=== PATIENT | female | born 1980 | race Caucasian/White ===

== ENCOUNTER 2017-11-10 09:51 | Outpatient (CLI) | payer BC ==
[2017-11-10] MEDS ORDERED: ISOVUE-370 76%-LOCM 1 ML ONE (14:10)
== END 2017-11-10 09:52 | disposition home or self-care (01) ==
LOC: BICCT 09:51
PROVIDERS: ATTEND Internal Medicine Hematology & Oncology
DX: C81.14 Nodular sclerosis Hodgkin lymphoma, lymph nodes of axilla and upper limb (principal); D50.8 Other iron deficiency anemias; R91.8 Other nonspecific abnormal finding of lung field
CPT/HCPCS: 71260

== ENCOUNTER 2018-01-21 13:28 | Outpatient (CLI) | payer BC ==
[2018-01-21 14:57] LABS: Hemoglobin 12.9 g/dL (12.0-16.0); Mean Corpuscular HGB CONC 34.6 g/dL (32.0-36.0); Mean Corpuscular Volume 89.6 fL (78.0-98.0); Mean Platelet Volume 6.5 fL (7.4-10.4); Platelet Count 299 thou/uL (130-400); RBC Distribution Width 15.7 % (11.5-14.5); Red Blood Cell (RBC) Count 4.15 mill/uL (4.20-5.40); White Blood Cell (WBC) Count 11.6 thou/uL (4.8-10.8)
[2018-01-21 15:09] LABS: Bilirubin Negative (Negative); Blood, Urine Negative (Negative); Clarity CLEAR (Clear); Glucose, Urine (Dipstick) Negative (Negative); Leukocyte Negative (Negative); Nitrite Negative (Negative); Protein, Urine (Dipstick) Negative (Neg-Trace); Specific Gravity, Urine 1.015 (1.002-1.036); Urobilinogen 0.2 mg/dL (0.2-1.0); pH, Urine 5.5 (5.0-9.0)
[2018-01-21 15:12] LABS: Bacteria/HPF None Seen HPF (None Seen); Hyaline Casts/LPF 0-3 HYALINE CAST LPF (0-3 Hyaline); Squamous Epithelial 0-3 HPF (0-3); WBC/HPF None Seen HPF (0-3)
[2018-01-21 15:19] LABS: BHCG - Serum Negative (NEGATIVE); Pregs Control Background? CLEAR/WHITE (CLR/WHITE); Pregs Control Bar Appear? YES (CONTROL BAR)
== END 2018-01-21 13:29 | disposition home or self-care (01) ==
LOC: LABBT 13:28
PROVIDERS: ATTEND Obstetrics & Gynecology
DX: Z01.812 Encounter for preprocedural laboratory examination (principal); N92.0 Excessive and frequent menstruation with regular cycle
CPT/HCPCS: 81001; 84703; 85027

== ENCOUNTER 2018-01-30 06:14 | Inpatient (IN) | payer BC ==
[2018-01-30] MEDS ORDERED: CEFAZOLIN/Water 2 GM/20 ML SYRINGE ONE (06:45)
[2018-01-30] MEDS ORDERED: Fentanyl 100 MCG/2 ML VIAL ONE ×4 (06:45→12:20)
[2018-01-30] MEDS ORDERED: Midazolam HCl 2 mg/2 ml Vial ONE (06:45)
[2018-01-30] MEDS ORDERED: HYDROmorphone 0.5 MG/0.5 ML SYRINGE ONE (06:45)
[2018-01-30] MEDS ORDERED: Bupivacaine HCl 0.5%/Epinephrine 1:200,000/PF 30 ml Vial ONE (06:55)
[2018-01-30] MEDS ORDERED: Thrombin 5000 UNITS/5 ML VIAL ONE ×2 (06:55→10:35)
[2018-01-30] MEDS ORDERED: Calcium Chloride 1 GM/10 ML Abboject SYRINGE ONE (06:55)
[2018-01-30] MEDS ORDERED: Vecuronium 10 MG VIAL ONE (07:59)
[2018-01-30] MEDS ORDERED: SUGAMMADEX SODIUM 200 MG/2 ML VIAL ONE (11:13)
[2018-01-30] MEDS ORDERED: Zolpidem Tartrate 5 MG TAB PO PRN ×2 (11:48→12:13)
[2018-01-30] MEDS ORDERED: Bisacodyl 10 MG SUPP PR PRN (11:48)
[2018-01-30] MEDS ORDERED: diphenhydrAMINE 25 MG CAP PO PRN ×2 (11:48→12:13)
[2018-01-30] MEDS ORDERED: Ondansetron HCl/PF 4 MG/2 ML Vial IVP PRN ×3 (11:48→12:13)
[2018-01-30] MEDS ORDERED: Simethicone Chewable 80 MG TAB PO PRN (11:48)
[2018-01-30] MEDS ORDERED: Promethazine HCl 25 MG/ML VIAL IM PRN ×2 (11:58→12:13)
[2018-01-30] MEDS ORDERED: Promethazine HCl 25 MG/ML VIAL SLOW IVP PRN (11:58)
[2018-01-30] MEDS ORDERED: Sodium Chloride 0.9% 1,000 ML IV SCH (12:00)
[2018-01-30] MEDS ORDERED: diphenhydrAMINE 50 MG/ML VIAL IM/IV PRN (12:13)
[2018-01-30] MEDS ORDERED: Morphine CADD 1 MG/ML CADD IV PRN (12:13)
[2018-01-30] MEDS ORDERED: Naloxone HCl 0.4 mg/ml Vial IV PRN (12:13)
[2018-01-30] MEDS ORDERED: Promethazine HCl 25 MG/ML VIAL ONE (12:45)
[2018-01-30] MEDS: Ketorolac Tromethamine 30 MG/ML VIAL IVP SCH ×2 (14:17→18:05)
[2018-01-30] MEDS: Lactated Ringer's 1,000 ML IV SCH ×2 (14:21→20:00)
[2018-01-30] MEDS: Acetaminophen 1,000 MG in Premix Bag 1 BAG IVPB SCH ×2 (14:41→22:28)
[2018-01-30] MEDS: CEFAZOLIN 1 GM in Sodium Chloride 0.9% 100 ML IVPB SCH ×2 (16:02→23:19)
[2018-01-30] MEDS: Enoxaparin Sodium 60 MG/0.6 ML SYRINGE SC SCH (18:06)
[2018-01-31] MEDS: Ketorolac Tromethamine 30 MG/ML VIAL IVP SCH ×4 (00:37→17:59)
[2018-01-31] MEDS: Lactated Ringer's 1,000 ML IV SCH ×2 (03:40→11:54)
[2018-01-31 05:50] LABS: Hemoglobin 12.2 g/dL (12.0-16.0); Mean Corpuscular HGB CONC 35.2 g/dL (32.0-36.0); Mean Corpuscular Hemoglobin 31.6 pg (27.0-31.0); Mean Corpuscular Volume 89.8 fL (78.0-98.0); Mean Platelet Volume 7.3 fL (7.4-10.4); Platelet Count 234 thou/uL (130-400); RBC Distribution Width 15.7 % (11.5-14.5); Red Blood Cell (RBC) Count 3.87 mill/uL (4.20-5.40); White Blood Cell (WBC) Count 17.2 thou/uL (4.8-10.8)
[2018-01-31] MEDS: CEFAZOLIN 1 GM in Sodium Chloride 0.9% 100 ML IVPB SCH ×3 (06:02→22:31)
[2018-01-31] MEDS: Acetaminophen 1,000 MG in Premix Bag 1 BAG IVPB SCH (06:55)
[2018-01-31] MEDS ORDERED: Prevnar 13-Val Conj/PF 0.5 ML SYRINGE IM ONE (09:00)
[2018-01-31] MEDS ORDERED: Acetaminophen/Codeine 30-300mg Tablet PO PRN (17:51)
[2018-01-31] MEDS ORDERED: Ibuprofen 800 MG TAB PO SCH (18:00)
[2018-01-31] MEDS ORDERED: Enoxaparin Sodium 60 MG/0.6 ML SYRINGE SC SCH (18:15)
[2018-01-31] MEDS: Acetaminophen/Codeine 30-300mg Tablet PO PRN ×2 (18:17→22:35)
[2018-01-31] MEDS: Enoxaparin Sodium 60 MG/0.6 ML SYRINGE SC SCH (18:19)
[2018-02-01] MEDS: Lactated Ringer's 1,000 ML IV SCH ×3 (01:56→11:31)
[2018-02-01] MEDS: Ibuprofen 800 MG TAB PO SCH ×3 (02:23→18:04)
[2018-02-01] MEDS: Acetaminophen/Codeine 30-300mg Tablet PO PRN ×5 (02:26→18:04)
[2018-02-01] MEDS: CEFAZOLIN 1 GM in Sodium Chloride 0.9% 100 ML IVPB SCH ×3 (05:48→22:23)
[2018-02-02] MEDS: Acetaminophen/Codeine 30-300mg Tablet PO PRN ×3 (02:32→14:25)
[2018-02-02] MEDS: Ibuprofen 800 MG TAB PO SCH ×2 (02:33→10:35)
[2018-02-02] MEDS: CEFAZOLIN 1 GM in Sodium Chloride 0.9% 100 ML IVPB SCH ×2 (06:56→14:25)
[2018-02-02] MEDS: Lactated Ringer's 1,000 ML IV SCH (07:05)
[2018-02-02 12:05] VITALS: BP 133/67; TEMP 98.7
== END 2018-02-02 15:33 | disposition home or self-care (01) | DRG 742 ==
LOC: SDC 06:14 → EDSTATUS 09:44 → 3SE 11:48
PROVIDERS: ADMIT Obstetrics & Gynecology; ATTEND Obstetrics & Gynecology
PROC: 0UT94ZZ Resection of Uterus, Percutaneous Endoscopic Approach (ICD-10-PCS; principal; 2018-01-30)
PROC: 0UT74ZZ Resection of Bilateral Fallopian Tubes, Percutaneous Endoscopic Approach (ICD-10-PCS; 2018-01-30)
PROC: 8E0W4CZ Robotic Assisted Procedure of Trunk Region, Percutaneous Endoscopic Approach (ICD-10-PCS; 2018-01-30)
DX: N92.0 Excessive and frequent menstruation with regular cycle (principal); Z68.43 Body mass index [BMI] 50.0-59.9, adult; N94.6 Dysmenorrhea, unspecified; N92.6 Irregular menstruation, unspecified; G89.18 Other acute postprocedural pain; E66.01 Morbid (severe) obesity due to excess calories; K66.0 Peritoneal adhesions (postprocedural) (postinfection); Z85.71 Personal history of Hodgkin lymphoma; F41.9 Anxiety disorder, unspecified; Z86.19 Personal history of other infectious and parasitic diseases
CPT/HCPCS: 36415; 85027; 88307; A4216; J0131; J0670; J0690; J1170; J1650; J1885; J2250; J2274; J2550; J3010; J7050

== ENCOUNTER 2018-04-28 14:38 | Outpatient (CLI) | payer BC ==
[2018-04-28] MEDS ORDERED: Iopamidol 370 76% 100 ML VIAL ONE (15:58)
--- NOTE | 2018-04-28 16:48 | CT ---
CT CHEST WITH CONTRAST: HISTORY: C81.14, nodular sclerotic Hodgkin's lymphoma of the axilla. COMPARISON: CT chest 11/10/2017. FINDINGS: In the right lower lobe, there has been interval enlargement of the mass which on the prior examinati on measured 3 x 3.5 cm, now measuring 4.6 x 5.3 cm using the same plane of reference. In the left lo wer lobe, the nodule has minimally increased in size previously measuring 19 x 15 mm, now 19 x 16 mm. Dominant AP window lymph node using the same plane of reference previously measured approximately 2 cm x 1.9 cm, now measuring the same size. No other new pulmonary nodule is appreciated. Thyroid is unremarkable. Subtle increase in size and right paratracheal adenopathy series 2 image 19 measuring 0.6 x 1 cm. Left hilar adenopathy has slightly increased in size measuring 1.5 x 1.7 cm, previously 1 x 1.1 cm. Diffuse hepatic steatosis. The remainder of the upper abdomen is unremarkable. No acute osseous abnormality. No suspicious lytic or blastic lesion. IMPRESSION: Size increased right lower lobe mass as well as right paratracheal adenopathy and left infrahilar roldan nopathy suggesting disease progression. POS: [facility]
== END 2018-04-28 14:39 | disposition home or self-care (01) ==
LOC: CT 14:38
PROVIDERS: ATTEND Internal Medicine Hematology & Oncology
DX: C81.14 Nodular sclerosis Hodgkin lymphoma, lymph nodes of axilla and upper limb (principal); D50.8 Other iron deficiency anemias; R91.8 Other nonspecific abnormal finding of lung field; R59.0 Localized enlarged lymph nodes
CPT/HCPCS: 71260; 80048; 82728

== ENCOUNTER 2018-05-15 06:14 | Inpatient (IN) | payer BC ==
[2018-05-15] MEDS ORDERED: CEFAZOLIN 2 GM/50 ML BAG ONE (06:31)
[2018-05-15] MEDS ORDERED: Bupivacaine HCl 0.5%/Epinephrine 1:200,000/PF 30 ml Vial ONE (06:31)
[2018-05-15] MEDS ORDERED: Fentanyl 100 MCG/2 ML VIAL ONE ×2 (06:31→06:33)
[2018-05-15] MEDS ORDERED: Midazolam HCl 2 mg/2 ml Vial ONE ×2 (06:31→06:33)
[2018-05-15 06:49] LABS: #Basophils 0.1 thou/uL (0.0-0.2); #Eosinphils 0.3 thou/uL (0.0-0.7); #Monocytes 0.6 thou/uL (0.11-0.59); #Neutrophils 11.9 thou/uL (1.40-6.50); %Basophils 0.9 % (0.0-1.0); %Eosinophils 2.4 % (0.0-10.0); %Lymphocytes 7.2 % (21.0-51.0); %Monocytes 4.6 % (0.0-10.0); Hemoglobin 12.1 g/dL (12.0-16.0); Mean Corpuscular HGB CONC 31.4 g/dL (32.0-36.0); Mean Corpuscular Hemoglobin 27.7 pg (27.0-31.0); Mean Corpuscular Volume 88.2 fL (78.0-98.0); Mean Platelet Volume 6.3 fL (7.4-10.4); Platelet Count 429 thou/uL (130-400); Red Blood Cell (RBC) Count 4.36 mill/uL (4.20-5.40)
[2018-05-15 07:07] LABS: Anion Gap 12 mmol/L (10-20); BUN (Urea Nitrogen) 10 mg/dL (7.0-18.7); Calc. Creatinine Clearance 259 mL/min (70-130); Calcium 9.4 mg/dL (7.8-10.44); Carbon Dioxide 24 mmol/L (22-29); Chloride 104 mmol/L (98-107); Estimated GFR-MDRD 77; Glucose 108 mg/dL (70-105); Potassium 3.8 mmol/L (3.5-5.1); Sodium 136 mmol/L (136-145)
[2018-05-15] MEDS ORDERED: Naloxone HCl 0.4 mg/ml Vial IV PRN (07:30)
[2018-05-15] MEDS ORDERED: Promethazine HCl 25 MG/ML VIAL IM PRN ×2 (07:30→10:46)
[2018-05-15] MEDS ORDERED: Promethazine HCl 25 MG SUPP PR PRN (07:30)
[2018-05-15] MEDS ORDERED: Ondansetron PF 4 MG/2 ML Vial IVP PRN ×2 (07:30→10:46)
[2018-05-15] MEDS ORDERED: Bupivacaine 0.25% 10 ML VIAL EPIDURAL PRN (07:30)
[2018-05-15] MEDS ORDERED: Hydrocerin (Eucerin) Cream 120 gm Jar TOP PRN (07:30)
[2018-05-15] MEDS ORDERED: Zolpidem Tartrate 5 MG TAB PO PRN (07:30)
[2018-05-15] MEDS ORDERED: diphenhydrAMINE 25 MG CAP PO PRN (07:30)
[2018-05-15] MEDS ORDERED: traMADol HCl 50 MG TAB PO PRN (07:30)
[2018-05-15] MEDS ORDERED: Fentanyl/Bupivacaine 100 ML EPIDURAL SCH (07:30)
[2018-05-15] MEDS ORDERED: Naloxone HCl 0.4 mg/ml Vial IVP PRN (07:30)
[2018-05-15] MEDS ORDERED: Ondansetron HCl/PF 4 MG/2 ML Vial IVP PRN (09:14)
--- NOTE | 2018-05-15 10:12 | OP ---
DATE OF PROCEDURE: 05/15/2018 PREOPERATIVE DIAGNOSIS: Right lower lobe lung mass in the setting a history of stage IV Hodgkin's ly mphoma treated and in remission. POSTOPERATIVE DIAGNOSIS: Right lower lobe lung mass in the setting a history of stage IV Hodgkin's l ymphoma treated and in remission. PROCEDURE: Right thoracotomy with right lower lobectomy. SPECIMENS: 1. Right lower lobe -- frozen section returned as a lymphoma. 2. Level 10 lymph node. SURGEON: Benjie Cruz M.D. ANESTHESIA: General endotracheal, Dr. Zaira Tidwell. DRAINS: 32-[place]zeri chest tubes x2. PROCEDURE IN DETAIL: After consent was obtained, the patient was brought to operating room and place d in supine position on the operating room table. Appropriate anesthetic monitor was placed and gene ral endotracheal anesthesia induced. Flexible fiberoptic bronchoscopy was used to confirm endotrache al tube placement. The patient was then placed in the left lateral decubitus position. Due to the p atsukhwinder's size, we had difficulty turning her and used multiple people in the operating room for turni ng assistance. An axillary roll was placed. All of her joints were appropriately padded. SCDs were used. Right chest wall was prepped and draped in usual sterile fashion. Posterolateral thoracotomy incisio n was made. This was a large incision due to her size. The thoracotomy was extended through the lat issimus and serratus. The fifth interspace was selected and entered. Lung was deflated nicely. On inspection, the mass was indeed in the lower lobe. It was easily palpable. The inferior pulmonary l igament was released. The lower lobe pulmonary vein was then exposed and divided with a vascular sta pler. Hilum was mobilized posteriorly. The posterior fissure was then divided all the way to the lo wer lobe pulmonary artery. Pulmonary artery was then divided with a vascular stapler. The anterior fissure was then completed with staple line. After this, the bronchus was clamped with a thick tissu e stapler. The upper and middle lobes inflated nicely. The bronchus was then divided. Specimen was sent for pathologic examination. Chest was copiously irrigated. Bronchial stump was tested under 4 0 cm of water pressure. It was water and air tight. The 32-[place] chest tubes x2 were then placed, one along the diaphragm and one to the apex. Lung was reexpanded and filled the chest cavity nicely. Ribs were reapproximated with four #1 Vicryl sutures. Wounds were then closed in multiple layers. Dermabond was applied to the skin. The patient tolerated procedure well, was awakened, extubated, a nd transferred to recovery room in stable condition.
[2018-05-15 10:20] VITALS: BMI 59.1
[2018-05-15] MEDS ORDERED: Fentanyl/Bupivacaine 100 ML EPIDURAL ONE (10:27)
[2018-05-15] MEDS ORDERED: Phenylephrine 10 MG/NS 250 ML 250 ML IVPB PRN (10:46)
[2018-05-15] MEDS: Ketorolac Tromethamine 30 MG/ML VIAL IVP PRN ×2 (12:03→22:21)
[2018-05-15] MEDS: diphenhydrAMINE 50 MG/ML VIAL IM PRN ×4 (12:19→22:21)
[2018-05-15] MEDS: traMADol HCl 50 MG TAB PO PRN ×2 (12:30→20:16)
[2018-05-15] MEDS: CEFAZOLIN 2 GM/50 ML BAG IVPB SCH ×2 (13:25→22:15)
[2018-05-15] MEDS ORDERED: Dexamethasone 20 MG/5 ML VIAL ONE (13:32)
[2018-05-15] MEDS ORDERED: Vecuronium 10 MG VIAL ONE (13:32)
[2018-05-15] MEDS ORDERED: Ketorolac Tromethamine 30 MG/ML VIAL ONE (13:32)
[2018-05-15] MEDS ORDERED: Ondansetron PF 4 MG/2 ML Vial ONE (13:32)
[2018-05-15] MEDS ORDERED: Lidocaine 1% PF 5 ML VIAL ONE (13:32)
[2018-05-15] MEDS ORDERED: Glycopyrrolate 0.2 MG/ML 5 ML SYRINGE ONE (13:32)
[2018-05-15] MEDS ORDERED: PROPOFOL 200 MG/20 ML VIAL ONE (13:32)
--- NOTE | 2018-05-15 14:36 | RAD ---
ONE VIEW CHEST: History: Status post thoracotomy. Comparison: None. FINDINGS: Portable semiupright chest demonstrates enlarged cardiac silhouette. The pulmonary vessels and hilum are normal. Costophrenic angles are clear. No consolidation or mass. No pneumothorax or osseous abnor malities. There is a right sided chest tube oriented in the cephalad direction. There is subcutaneous emphysema in the right chest wall. IMPRESSION: No pneumothorax. POS: [facility]
[2018-05-15] MEDS: Fentanyl/Bupivacaine 100 ML EPIDURAL SCH (20:23)
[2018-05-16] MEDS: Ketorolac Tromethamine 30 MG/ML VIAL IVP PRN ×3 (03:57→19:23)
[2018-05-16] MEDS: traMADol HCl 50 MG TAB PO PRN ×3 (03:57→19:22)
[2018-05-16 04:12] LABS: #Basophils 0.1 thou/uL (0.0-0.2); #Monocytes 0.9 thou/uL (0.11-0.59); #Neutrophils 13.6 thou/uL (1.40-6.50); %Basophils 0.7 % (0.0-1.0); %Eosinophils 0.3 % (0.0-10.0); %Lymphocytes 6.5 % (21.0-51.0); %Monocytes 5.5 % (0.0-10.0); Hemoglobin 12.4 g/dL (12.0-16.0); Mean Corpuscular HGB CONC 31.7 g/dL (32.0-36.0); Mean Corpuscular Hemoglobin 28.7 pg (27.0-31.0); Mean Corpuscular Volume 90.5 fL (78.0-98.0); Mean Platelet Volume 6.4 fL (7.4-10.4); Platelet Count 430 thou/uL (130-400); RBC Distribution Width 13.1 % (11.5-14.5); Red Blood Cell (RBC) Count 4.31 mill/uL (4.20-5.40); White Blood Cell (WBC) Count 15.7 thou/uL (4.8-10.8)
[2018-05-16] MEDS: diphenhydrAMINE 50 MG/ML VIAL IM PRN ×4 (04:16→23:11)
[2018-05-16 04:28] LABS: Anion Gap 13 mmol/L (10-20); BUN (Urea Nitrogen) 11 mg/dL (7.0-18.7); Calc. Creatinine Clearance 247 mL/min (70-130); Calcium 8.8 mg/dL (7.8-10.44); Carbon Dioxide 23 mmol/L (22-29); Chloride 105 mmol/L (98-107); Estimated GFR-MDRD 73; Glucose 111 mg/dL (70-105); Potassium 3.9 mmol/L (3.5-5.1); Sodium 137 mmol/L (136-145)
[2018-05-16] MEDS: CEFAZOLIN 2 GM/50 ML BAG IVPB SCH (06:23)
[2018-05-16] MEDS: Fentanyl/Bupivacaine 100 ML EPIDURAL SCH ×3 (06:33→23:11)
[2018-05-16] MEDS ORDERED: Scopolamine 1.5 mg/72 hour Patch TOP SCH (09:45)
--- NOTE | 2018-05-16 11:41 | RAD ---
PORTABLE CHEST: History Status post thoracotomy. COMPARISON: Prior day's exam. FINDINGS: A right-sided chest tube remains in place with elevation of the right hemidiaphragm. Heart size is e nlarged. Overall stable appearance to the chest as compared to the prior examination. IMPRESSION: Essentially stable chest. POS: [facility]
[2018-05-16] MEDS ORDERED: Scopolamine 1.5 mg/72 hour Patch TOP PRN (12:17)
[2018-05-16] MEDS: guaiFENesin/DM ER PO SCH ×2 (12:30→20:01)
--- NOTE | 2018-05-16 19:37 | CON ---
DATE OF CONSULTATION: 05/16/2018 HISTORY OF PRESENT ILLNESS: Ms. Delacruz is a very pleasant 38-year-old female with history of Hodgkin's lymphoma. She has had an enlarging mass. Per my discussion with Dr. Cruz, she has declined to add ress this until recently when she agreed to a thoracotomy. Because of her size, this lesion was not felt to be amenable to needle biopsy. She has subsequently undergone a lobectomy. PAST MEDICAL HISTORY: Remarkable for a laparoscopy in February of this year with a hysterectomy, lysis of adhesions, and a salpingectomy. SOCIAL HISTORY: She is nonsmoker, nondrinker. FAMILY HISTORY: Negative for lung disease in early age. REVIEW OF SYSTEMS: Otherwise negative. PHYSICAL EXAMINATION: GENERAL: She is in no distress. She is complaining of minimal discomfort. VITAL SIGNS: Blood pressure 121/76, heart rate 79, respiratory rate 24. LUNGS: Clear. HEART: Regular rhythm. ABDOMEN: Soft. EXTREMITIES: Without clubbing, cyanosis, or edema. She has no air leak. LABORATORY DATA: White count 15.7, hemoglobin 12.4, platelets 430. Electrolytes are normal. IMPRESSION: Status post lobectomy. Preliminary look by pathology suggestive that this is lymphoma. We will await final pathology. She appears to be stable post-thoracotomy.
[2018-05-17] MEDS: traMADol HCl 50 MG TAB PO PRN ×4 (01:18→19:04)
[2018-05-17] MEDS: Ketorolac Tromethamine 30 MG/ML VIAL IVP PRN ×4 (01:18→19:06)
[2018-05-17] MEDS: diphenhydrAMINE 50 MG/ML VIAL IVP PRN ×4 (03:32→19:50)
[2018-05-17] MEDS: Fentanyl/Bupivacaine 100 ML EPIDURAL SCH ×2 (07:29→16:05)
[2018-05-17] MEDS ORDERED: Furosemide 20 MG/2 ML VIAL SLOW IVP SCH (08:30)
[2018-05-17] MEDS: guaiFENesin/DM ER PO SCH ×2 (09:57→20:14)
--- NOTE | 2018-05-17 10:34 | RAD ---
PORTABLE CHEST: HISTORY: Post thoracotomy. COMPARISON: Prior day's study. FINDINGS: Right chest tube remains unchanged in position. Elevation of the right hemidiaphragm and parenchymal changes in the right lung are all stable. IMPRESSION: Stable exam. POS: [facility]
--- NOTE | 2018-05-17 17:39 | PRG ---
DATE OF SERVICE: 05/17/2018 SUBJECTIVE: Vicky Delacruz had minimal complaints with chest discomfort. OBJECTIVE: VITAL SIGNS: Blood pressure 137/68, heart rate 83, respiratory rate 17, oximetry is 96%. LUNGS: Clear. HEART: Regular rhythm. ABDOMEN: Soft. LABORATORY DATA: White count 15.7, hemoglobin 12.4, platelets 430. Electrolytes are normal. IMPRESSION: Pulmonary lymphoma presenting as a recurrence of Hodgkin's disease. PLAN: Home once chest tubes are out and follow up with Oncology once she is recovered from her surge ry. Chest radiograph is unchanged today. Drainage was 530 mL, so a chest tube was not removed today.
[2018-05-18] MEDS: Fentanyl/Bupivacaine 100 ML EPIDURAL SCH (00:32)
[2018-05-18] MEDS: Ketorolac Tromethamine 30 MG/ML VIAL IVP PRN (01:03)
[2018-05-18] MEDS: traMADol HCl 50 MG TAB PO PRN ×4 (01:04→20:09)
[2018-05-18] MEDS: diphenhydrAMINE 50 MG/ML VIAL IVP PRN ×2 (02:24→21:07)
[2018-05-18] MEDS ORDERED: Budesonide 0.5 MG/2 ML NEB ONE (07:14)
[2018-05-18] MEDS: Budesonide 0.5 MG/2 ML NEB INH SCH ×2 (07:25→19:27)
--- NOTE | 2018-05-18 07:48 | PRG ---
DATE OF SERVICE: 05/18/2018 SUBJECTIVE: Ms. Delacruz did well overnight. Her chest tubes have been removed. She is coughing freque ntly, so we placed her on nebulized budesonide and Tessalon Perles. OBJECTIVE: VITAL SIGNS: Blood pressure 132/74, heart rate 71, respiratory rate 16, oximetry is 100%. LUNGS: C lear. HEART: Regular rhythm. ABDOMEN: Soft. EXTREMITIES: Without asymmetry. Chest tube output was only 220 mL. IMPRESSION: 1. Status post lobectomy for lymphoma that is recurrent. 2. History of Hodgkin's lymphoma. 3. Obesity. PLAN: Continue supportive care, Tessalon Perles, budesonide. If she is stable, she can probably be transferred out of the Critical Care Unit later today.
[2018-05-18] MEDS: Benzonatate 100 MG CAP PO SCH ×3 (07:54→20:08)
[2018-05-18] MEDS ORDERED: Benzonatate 100 MG CAP PO SCH (09:00)
--- NOTE | 2018-05-18 09:32 | RAD ---
UPRIGHT PORTABLE CHEST 1 VIEW: HISTORY: A 38-year-old female with a history of status post thoracotomy. FINDINGS: Poor inspiration. Right-sided chest tube. Right hemidiaphragm elevation. Bilateral vascular conges tion. Borderline cardiomegaly. No evidence for pneumothorax. Overall stable from prior study. IMPRESSION: Stable chest with bilateral vascular congestion and evidence for cardiomegaly and prominent right hem idiaphragm elevation and right chest tube in place. POS: [facility]
[2018-05-18] MEDS: guaiFENesin/DM ER PO SCH ×2 (11:26→20:26)
[2018-05-18] MEDS ORDERED: HYDROcodone/Acetaminophen 10/325 mg Tablet PO PRN ×4 (16:07→17:40)
[2018-05-18] MEDS ORDERED: Fentanyl 100 MCG/2 ML VIAL SLOW IVP PRN (16:08)
[2018-05-18] MEDS: HYDROcodone/Acetaminophen 10/325 mg Tablet PO PRN (17:47)
[2018-05-19] MEDS: HYDROcodone/Acetaminophen 10/325 mg Tablet PO PRN ×2 (00:19→21:22)
[2018-05-19] MEDS: traMADol HCl 50 MG TAB PO PRN (02:24)
[2018-05-19] MEDS: diphenhydrAMINE 50 MG/ML VIAL IVP PRN (05:15)
[2018-05-19] MEDS: Ibuprofen 800 MG TAB PO SCH ×3 (06:13→21:21)
[2018-05-19] MEDS: Budesonide 0.5 MG/2 ML NEB INH SCH ×2 (07:43→19:48)
--- NOTE | 2018-05-19 09:43 | RAD ---
SINGLE VIEW CHEST: Date: 05/19/18 COMPARISON: 05/18/18. HISTORY: Status post thoracotomy. FINDINGS: Single view of the chest shows an enlarged cardiomediastinal silhouette. The right-sided chest tube h as been removed. There is a small right pleural effusion without evidence of pneumothorax. IMPRESSION: Small right pleural effusion. POS: [facility]
[2018-05-19] MEDS: Benzonatate 100 MG CAP PO SCH ×3 (09:54→21:22)
[2018-05-19] MEDS: guaiFENesin/DM ER PO SCH ×2 (13:15→21:33)
--- NOTE | 2018-05-19 14:19 | PRG ---
DATE OF SERVICE: 05/19/2018 Ms. Delacruz has no new complaints. PHYSICAL EXAMINATION: VITAL SIGNS: She is afebrile, heart rate 78, respiratory rate is 18, oximetry is 97 on room air, blo od pressure earlier was 143/88 at 11:21 it was 141/100. It is unclear whether or not this was a larg e cuff. Surgical specimen from 05/15/2018 is still pending. IMPRESSION: Hodgkin's lymphoma, most likely recurrent in the lung. PLAN: Physical therapy and home soon, hopefully.
[2018-05-20] MEDS: HYDROcodone/Acetaminophen 10/325 mg Tablet PO PRN ×2 (01:51→10:06)
[2018-05-20] MEDS: Ibuprofen 800 MG TAB PO SCH (05:45)
[2018-05-20 05:54] VITALS: TEMP 97.8
--- NOTE | 2018-05-20 06:30 | DIS ---
DATE OF ADMISSION: 05/15/2018 DATE OF DISCHARGE: 05/20/2018 DIAGNOSIS: Right lower lobe lung mass. PROCEDURES: Right lower lobectomy. DESCRIPTION OF HOSPITAL STAY: Ms. Delacruz is a 38-year-old woman with history of stage IV Hodgkin's lym phoma. She had a right lower lung mass which has grown over the last year. Attempts at percutaneous biopsy have been unsuccessful in obtaining a diagnosis. She underwent a right thoracotomy and lower lobectomy. Pathology is still pending. Postoperatively, she has done well. She was managed with chest tubes initially. These have been dis continued and she has had no further pulmonary issues. At the time of discharge, she is ambulatory, tolerating a regular diet, having good bowel and bladder function. Incisions are clean and dry witho ut evidence of infection. DISCHARGE MEDICATIONS: 1. Include Tessalon 200 mg p.o. t.i.d. 2. Levaquin 750 mg daily. 3. [place] 10/325 one to two p.o. q.6h. p.r.n. pain. 4. Motrin 800 mg p.o. t.i.d. with meals. Follow up is with me in [address] Whitlock for her oncologic referral.
[2018-05-20] MEDS: Budesonide 0.5 MG/2 ML NEB INH SCH (08:10)
[2018-05-20 08:41] VITALS: BP 125/73
--- NOTE | 2018-05-20 09:17 | RAD ---
PORTABLE CHEST ONE VIEW: 05/20/2018 7:24 a.m. HISTORY: Status post thoracotomy. COMPARISON: Exam from the previous day. FINDINGS: There is continued elevation of the right hemidiaphragm with probable small effusion. The heart is e nlarged. The left lung is clear. No pneumothorax or karla pulmonary edema is seen. IMPRESSION: Stable examination. POS: [facility]
[2018-05-20] MEDS: guaiFENesin/DM ER PO SCH (10:05)
[2018-05-20] MEDS: Benzonatate 100 MG CAP PO SCH (10:05)
== END 2018-05-20 13:50 | disposition home or self-care (01) | DRG 824 ==
LOC: SDC 06:14 → CCU 09:58 → 3SE 05-19 11:15
PROVIDERS: ADMIT Thoracic Surgery (Cardiothoracic Vascular Surgery); ATTEND Thoracic Surgery (Cardiothoracic Vascular Surgery)
PROC: 0BTF0ZZ Resection of Right Lower Lung Lobe, Open Approach (ICD-10-PCS; principal; 2018-05-15)
DX: C81.99 Hodgkin lymphoma, unspecified, extranodal and solid organ sites (principal); Z68.44 Body mass index [BMI] 60.0-69.9, adult; E66.01 Morbid (severe) obesity due to excess calories
CPT/HCPCS: 36415; 71045; 80048; 85025; 86850; 86900; 86901; 88184; 88307; 88309; 88312; 88331; 88341; 88342; 94640; G8978-GP-CJ; G8979-GP-CI; J0670; J1100; J1200; J1885; J1940; J2001; J2250; J2405; J2704; J3010; J7620; J7626

== ENCOUNTER 2018-06-03 14:48 | Outpatient (CLI) | payer BC ==
--- NOTE | 2018-06-03 15:26 | RAD ---
CHEST PA AND LATERAL: History: 38-year-old female with history of status post thoracotomy. FINDINGS: Right sided pleural thickening with some right hemidiaphragm elevation. Heart size is within normal l imits. The left lung is clear. Considerable decreased volume in the right lung. IMPRESSION: Decreased volume in the right chest, evidence for prior surgery. Some right hemidiaphragm elevation a nd some right sided pleural thickening, stable from prior study. No significant new process. POS: [facility]
== END 2018-06-03 14:49 | disposition home or self-care (01) ==
LOC: RAD 14:48
PROVIDERS: ATTEND Thoracic Surgery (Cardiothoracic Vascular Surgery)
DX: R91.8 Other nonspecific abnormal finding of lung field (principal); Q79.1 Other congenital malformations of diaphragm; J92.9 Pleural plaque without asbestos; Z98.890 Other specified postprocedural states
CPT/HCPCS: 71046

== ENCOUNTER 2020-11-06 09:07 | Outpatient (CLI) | payer BC | END 2020-11-06 09:08 | disposition home or self-care (01) | LOC: PET 09:07 | PROVIDERS: ATTEND Internal Medicine Hematology & Oncology | DX: C81.14 Nodular sclerosis Hodgkin lymphoma, lymph nodes of axilla and upper limb (principal) | CPT/HCPCS: 78815; A9552 ==